=== PATIENT | female | born 1980 | race Caucasian/White ===

== ENCOUNTER → 2017-11-15 | Day surgery (SDC) | payer BC ==
[~2017-11-15] MED LIST: CYMBALTA20 MG PO; ETANERCEPT; FENTANYL CITRATE/PF 100MCG/2 ML INJ ONE; LIDOCAINE HCL 2% LOCAL INJ 5 ML SDV VIAL INJ ONE; MIDAZOLAM HCL 2 MG/2 ML VIAL ONE; ORENCIA125 MG/1 M; PROPOFOL IV EMULSION 10 MG/ML 50 ML VIAL ONE; RASUVO; TRAZODONE HCL50 MG PO; Z.0.FOLIC ACID0.4 MG; Z.0.HYDROXYCHLOROQ20; Z.0.NORCO 7.5-3251 E; [UNRECOGNIZED DRUG - OTHER]; [UNRECOGNIZED DRUG - OTHER]; [UNRECOGNIZED DRUG - OTHER]
[2017-11-15 16:10] VITALS: BP 126/86
--- NOTE | 2017-11-15 16:48 | Operative Report ---
DATE OF PROCEDURE: November 15, 2017 REFERRING PHYSICIAN: Dr. Issa Bhatti. PROCEDURE PERFORMED: Esophagogastroduodenoscopy with biopsies. INDICATIONS FOR ESOPHAGOGASTRODUODENOSCOPY: Upper abdominal pain, nausea and vomiting. MEDICATION: Patient was done under MAC. Please see anesthesiologist's note. PROCEDURE: With patient in the left lateral decubitus position, flexible fiberoptic Olympus gastroscope was introduced into the esophagus under direct visualization without any difficulty. There was some patchy erythema noted in distal esophagus. The scope was then advanced with ease into the stomach. Mucosa overlying the antrum and the body revealed some patchy areas of erythema and low-grade edema and biopsies were obtained and sent to stain for H. pylori. Pylorus appeared to be of normal contour and shape. It was intubated with ease and the scope was advanced all the way to the 2nd portion of the duodenum. The scope was then withdrawn slowly. Mucosa overlying the proximal 2nd portion and the duodenal bulb appeared to be within normal limits. The scope was then withdrawn back into the stomach and retroflexed and mucosa overlying the fundus and cardia appeared to be within normal limits. The scope was then straightened out. The stomach was decompressed. Scope was subsequently withdrawn. Patient tolerated the procedure well. IMPRESSION: 1. Distal esophagitis, mild. 2. Gastritis, biopsied. Biopsy sent to stain for H. pylori. PLAN: Follow up histology. Initiate Protonix 40 mg 1 p.o.q.a.m. a.c. Job#: [id number] cc:ISSA BHATTI DO
== END | disposition home or self-care (01) ==
LOC: OR 14:32
PROVIDERS: ATTEND Internal Medicine Gastroenterology
DX: K29.70 Gastritis, unspecified, without bleeding (principal); K20.9 Esophagitis, unspecified; M06.9 Rheumatoid arthritis, unspecified; K59.00 Constipation, unspecified; Z88.8 Allergy status to other drugs, medicaments and biological substances
CPT/HCPCS: 43239; J2001; J2250

== ENCOUNTER → 2017-12-12 | Outpatient (CLI) | payer BC ==
[~2017-12-12] MED LIST changes: -FENTANYL CITRATE/PF 100MCG/2 ML INJ ONE; -LIDOCAINE HCL 2% LOCAL INJ 5 ML SDV VIAL INJ ONE; -MIDAZOLAM HCL 2 MG/2 ML VIAL ONE; -PROPOFOL IV EMULSION 10 MG/ML 50 ML VIAL ONE; +SINCALIDE 3 MCG/VIAL INJ ONE
--- NOTE | 2017-12-12 10:56 | Diagnostic Imaging Report ---
PROCEDURE:ABDOMINAL ULTRASOUND COMPARISON:Report from CT Abdomen 01/06/16, although the images are not available for review. INDICATIONS:ABDOMEN PAIN FINDINGS: Liver: Measures 12.6 cm. Normal hepatic parenchymal echogenicity. A predominately anechoic cyst measuring up to 1.7 cm is present in the right lobe of the liver, with punctate echogenic foci. The prior CT had noted a 1 cm hepatic cyst, although the images are not available for review. Main portal vein: Measures 0.9 cm. Hepatopedal flow. Gallbladder: Unremarkable in appearance. No evidence of stone. Gallbladder wall measures 0.2 cm. Common Bile Duct: Measures 0.3 cm. No echogenic filling defect. Sonographic Dawson's sign: Negative reported sonographic Dawson's sign. Right kidney: Measures 12.4 cm. No solid or cystic mass or hydronephrosis. Normal parenchymal echogenicity. Punctate non-obstructing left renal stones. Left kidney: Measures 9.8 cm. No solid or cystic mass, stone, or hydronephrosis. Normal parenchymal echogenicity. Spleen: Measures 9.8 cm. Pancreas: The visualized portions of the pancreas are normal. Inferior vena cava: Normal. Aorta: Normal. Ascites: None. CONCLUSION: No acute sonographic abnormality. No evidence of cholecystitis. Right hepatic lobe minimally complex cyst measuring up to 1.7 cm. A 1 cm hepatic cyst was noted on prior CT report from 2015, however the images are not available for review. A follow-up liver ultrasound may be considered in 6-12 months to assess for stability. Punctate non-obstructing left renal stones. Dictated by: BLAZE BURGOS M.D. on 12/12/2017 at 11:03 Electronically approved by: BLAZE BURGOS M.D. on 12/12/2017 at 11:03
--- NOTE | 2017-12-12 19:35 | Diagnostic Imaging Report ---
Hepatobiliary Scan with Gallbladder Ejection Fraction Clinical information: 37 F with abdominal pain; history of perforated gastric ulcer. Report: Following intravenous administration of 6.5 millicuries of Tc-99m mebrofenin, dynamic images of the abdomen in the anterior projection were obtained through 60 minutes. Sincalide (CCK analog) 1.3 micrograms was administered intravenously over 30 minutes with additional imaging for determination of gallbladder ejection fraction. Perfusion to the liver is normal. Extraction of tracer from the blood pool by the liver parenchyma is normal. Tracer is seen promptly within the biliary tract. The gallbladder begins to fill by 10 minutes post-injection of tracer and fills adequately. Tracer is seen in the small bowel during the sincalide infusion. The gallbladder ejection fraction with administration of sincalide is 46% (normal greater than 40%). Impression: 1. Filling of the gallbladder excludes the diagnosis of acute cystic duct obstruction/acute cholecystitis. 2. Normal gallbladder ejection fraction of 46% does not support the clinical diagnosis of chronic cholecystitis/gallbladder dyskinesia. Signed by: Dr. Trinh Guzman M.D. on 12/12/2017 7:31 PM
== END ==
LOC: US 08:31
PROVIDERS: ATTEND Internal Medicine Gastroenterology
DX: R10.9 Unspecified abdominal pain (principal)
CPT/HCPCS: 76700; 78227; A9537; J2805